=== PATIENT | female | born 1960 | race Hispanic/Latino ===

== ENCOUNTER 2018-09-04 11:43 | Emergency (ER) | payer SELFPAY ==
--- NOTE | 2018-09-04 11:54 | Emergency Department Report ---
Blank Doc - Documentation Documentation: This is a 58-year-old female that presents with headache x13 days. Patient de nies any history of headache. Describes headache as aching and throbbing with level of 10/10. Denies any head injuries or trauma. Stated has some dizziness. Denies blurry vision. Sister stated has some balance issues. Also stated has some left ear pain. This initial assessment diagnostic orders/clinical plan/treatment(s) is/are subject to change based on patient's health status, clinical progression and re- assessment by fellow clinical providers in the ED. Further treatment and workup at subsequent clinical providers discretion. Patient/guardians urged not to elope from ED s their condition may be serious if not clinically assessed and managed. Initial orders include: 1-Will order some labs 2-CT of head due to new onset of headache 3- V/S stable
[2018-09-04 12:38] LABS: Basophils % (Auto) 0.5 % (0.0-1.8); Eosinophils # (Auto) 0.2 K/mm3 (0.0-0.4); Eosinophils % (Auto) 1.6 % (0.0-4.3); Hemoglobin 13.6 gm/dl (10.1-14.3); Lymphocytes # (Auto) 3.7 K/mm3 (1.2-5.4); Lymphocytes % (Auto) 38.9 % (13.4-35.0); Mean Corpuscular HGB Conc 34 % (30-34); Mean Corpuscular Volume 86 fl (79-97); Monocytes # (Auto) 0.5 K/mm3 (0.0-0.8); Platelet Count 220 K/mm3 (140-440); Red Blood Count 4.64 M/mm3 (3.65-5.03); Red Cell Distribution Width 13.8 % (13.2-15.2)
[2018-09-04] MEDS ORDERED: BENADRYL IV ONE (12:39)
[2018-09-04] MEDS ORDERED: ZOFRAN IV ONE (12:39)
--- NOTE | 2018-09-04 12:48 | Cat Scan Report ---
FINAL REPORT EXAM: CT HEAD/BRAIN WO CON HISTORY: headache TECHNIQUE: CT of the head was performed. No intravenous contrast was administered. PRIORS: 02/28/2016 FINDINGS: There is no evidence of intracranial hemorrhage. There is no edema, mass effect or midline shift. There are no abnormal extra-axial fluid collections. The ventricles are appropriate for brain volume. There is no skull fracture seen. The visualized aspects of the sinuses are clear. IMPRESSION: There is no acute intracranial abnormality identified.
[2018-09-04 12:55] LABS: Alanine Aminotransferase 16 units/L (7-56); Albumin 4.2 g/dL (3.9-5); BUN/Creatinine Ratio 19; Blood Urea Nitrogen 15 mg/dL (7-17); Calcium 9.4 mg/dL (8.4-10.2); Hemolysis Index 2
[2018-09-04 13:00] LABS: Bilirubin,Urine NEG (Negative); Blood,Urine NEG (Negative); Color,Urine Yellow (Yellow); Mucus,Urine FEW /HPF; Protein,Urine <15 mg/dL mg/dL (Negative); Urobilinogen,Urine < 2.0 mg/dL (<2.0)
--- NOTE | 2018-09-04 13:48 | Emergency Department Report ---
ED Headache HPI - General Chief Complaint: Headache Stated Complaint: SEVERE HEADACHE Time Seen by Provider: 09/04/18 11:50 - History of Present Illness Initial Comments: 58-year-old female with a history of migraine headaches presents to ED with intermittent migraine headache for the past 2 weeks. She denies loss of consciousness trauma to the head. States [id number] medications has no relief. She reports pain. He rates pain a 5 out of 10 intensity with no blurred vision. She denies fever, chills, nausea vomiting, stuffy nose, coughing, dizziness or shortness of breath Quality: moderate Head Injury Location: frontal, temporal Recent Head Trauma: no recent headache/trauma, frequent headaches, chronic headaches Modifying Factors: worse with: exposure to light Associated Symptoms: other (nausea). denies: confusion, fatigue, facial pain, loss of consciousness, nausea/vomiting, nasal congestion, nasal drainage Allergies/Adverse Reactions: Allergies No Known Allergies Allergy (Verified 11/17/13 04:10) Home Medications: Ambulatory Orders Hydrocodone Bit/Acetaminophen [Lortab 10-500 mg] 1 tab PO Q6H PRN #20 tablet 05/04/13 ALPRAZolam [Xanax TAB] 0.5 mg PO TID PRN 02/28/16 Prochlorperazine [Compazine] 10 mg PO Q8HR #40 tablet 09/04/18 ED Review of Systems ROS: Stated complaint: SEVERE HEADACHE Other details as noted in HPI Comment: All other systems reviewed and negative ED Past Medical Hx - Past Medical History Hx Hypertension: Yes - Surgical History Hx Appendectomy: Yes - Social History Smoking Status: Current Every Day Smoker Substance Use Type: None - Medications Home Medications: Home Medications Medication Instructions Recorded Confirmed Last Taken Type Hydrocodone Bit/Acetaminophen 1 tab PO Q6H PRN #20 tablet 05/04/13 02/28/16 Unknown Rx [Lortab 10-500 mg] ALPRAZolam [Xanax TAB] 0.5 mg PO TID PRN 02/28/16 02/28/16 Unknown History Prochlorperazine [Compazine] 10 mg PO Q8HR #40 tablet 09/04/18 Unknown Rx ED Physical Exam - General Limitations: No Limitations General appearance: alert, in no apparent distress - Head Head exam: Present: atraumatic, normocephalic - Eye Eye exam: Present: normal appearance - ENT ENT exam: Present: mucous membranes moist - Neck Neck exam: Present: normal inspection - Respiratory Respiratory exam: Present: normal lung sounds bilaterally. Absent: respiratory distress - Cardiovascular Cardiovascular Exam: Present: regular rate, normal rhythm. Absent: systolic murmur, diastolic murmur, rubs, gallop - GI/Abdominal GI/Abdominal exam: Present: soft, normal bowel sounds - Extremities Exam Extremities exam: Present: normal inspection - Back Exam Back exam: Present: normal inspection - Neurological Exam Neurological exam: Present: alert, oriented X3, CN II-XII intact, normal gait, other (no neurological deficit.) - Expanded Neurological Exam Expanded Cerebellar function: Finger to Nose: Normal Sensory exam: Upper Extremity Light Touch: Normal, Lower Extremity Light Touch: Normal Motor strength exam: RUE: 5, LUE: 5, RLE: 5, LLE: 5 - Psychiatric Psychiatric exam: Present: normal affect, normal mood - Skin Skin exam: Present: warm, dry, intact, normal color. Absent: rash ED Course Vital Signs 09/04/18 09/04/18 11:52 14:21 Temperature 97.8 F 98.2 F Pulse Rate 92 H 79 Respiratory 18 19 Rate Blood Pressure 142/92 Blood Pressure 125/74 [Right] O2 Sat by Pulse 96 99 Oximetry ED Medical Decision Making - Lab Data Result diagrams: 09/04/18 12:22 09/04/18 12:22 - Radiology Data Radiology results: report reviewed, image reviewed No acute intracranial abnormality - Medical Decision Making 58-year-old female that presents with migraine headache Patient received medication in the ED. She had no neurological deficit during the ED stay. Discuss follow-up with her primary care physician as well as Discuss follow-up with neurologist for assessment of migraine headaches. CT scan shows no acute process. Critical care attestation.: If time is entered above; I have spent that time in minutes in the direct care of this critically ill patient, excluding procedure time. ED Disposition Clinical Impression: Migraine headache with aura Disposition: -01 TO HOME OR SELFCARE Is pt being admited?: No Does the pt Need Aspirin: No Condition: Stable Instructions: Migraine Headache (ED), Acute Headache (ED) Additional Instructions: Make sure to follow up with the primary care physician as discussed. Take all your medications as you've been prescribed. If you have any worsening symptoms or develop new symptoms please return to ED immediately. Prescriptions: Prochlorperazine [Compazine] 10 mg PO Q8HR #40 tablet Referrals: [facility] [Outside] - 3-5 Days [facility] [Outside] - 3-5 Days CHARISMA CALVERT MD [Staff Physician] - 3-5 Days Forms: Accompanied Note, Work/School Release Form(ED) Time of Disposition: 13:48
[2018-09-04 14:23] VITALS: BP 125/74
== END 2018-09-04 14:10 | disposition home or self-care (01) ==
LOC: ED 11:43
DX: G43.109 Migraine with aura, not intractable, without status migrainosus (principal); I10 Essential (primary) hypertension; F17.200 Nicotine dependence, unspecified, uncomplicated; Z90.89 Acquired absence of other organs
CPT/HCPCS: 36415; 70450; 80053; 81001; 85025; 96374; 96375; 99284; J1200; J2405

== ENCOUNTER 2019-09-12 08:08 | Emergency (ER) | payer SELFPAY ==
[2019-09-12 08:20] VITALS: BP 121/67
[2019-09-12] MEDS ORDERED: IBUPROFEN 600 MG TAB PO ONE (08:53)
[2019-09-12] MEDS ORDERED: oxyCODONE /ACETAMINOPHEN 5-325MG TAB PO ONE (08:53)
--- NOTE | 2019-09-12 09:41 | XRay Report ---
LEFT RIB SERIES 4 VIEWS INDICATION: Fall RIB PAIN. COMPARISON: No relevant prior imaging study available. FINDINGS: No pulmonary contusion or hemopneumothorax is seen. No displaced left-sided rib fractures are seen. IMPRESSION: 1. No acute findings. Signer Name: Vijay Lemus MD Signed: 09/12/2019 9:37 AM Workstation Name: [id number]
--- NOTE | 2019-09-12 09:48 | Emergency Department Report ---
ED General Adult HPI - General Chief complaint: Fall Stated complaint: RIB PAIN X 3 DAYS Time Seen by Provider: 09/12/19 08:48 Source: patient, EMS Mode of arrival: Stretcher Limitations: No Limitations - History of Present Illness Initial comments: Patient is a 58-year-old female was walking 2 days ago and tripped on a Toy and fell to the ground. Patient fell on her left side. Patient is complaining of intense pain in the left ribs. There is some bruising just distal to the left axilla. Patient has difficulty moving and taking deep br eaths. Pain is 9 out of 10 in severity. Severity scale (0 -10): 9 Quality: aching Consistency: constant Associated Symptoms: denies: cough, diaphoresis, fever/chills, malaise, nausea/vomiting - Related Data Home Medications Medication Instructions Recorded Confirmed Last Taken ALPRAZolam [Xanax TAB] 0.5 mg PO TID PRN 02/28/16 02/28/16 Unknown Previous Rx's Medication Instructions Recorded Last Taken Type Hydrocodone Bit/Acetaminophen 1 tab PO Q6H PRN #20 tablet 05/04/13 Unknown Rx [Lortab 10-500 mg] Prochlorperazine [Compazine] 10 mg PO Q8HR #40 tablet 09/04/18 Unknown Rx HYDROcodone/APAP 5-325 [Hugo 1 each PO Q6HR PRN #10 tablet 09/12/19 Unknown Rx 5/325] Ibuprofen [Motrin 600 MG tab] 600 mg PO Q8H PRN #14 tablet 09/12/19 Unknown Rx methOCARBAMOL [Robaxin TAB] 500 mg PO Q6H PRN #14 tablet 09/12/19 Unknown Rx Allergies Allergy/AdvReac Type Severity Reaction Status Date / Time No Known Allergies Allergy Verified 11/17/13 04:10 ED Review of Systems ROS: Stated complaint: RIB PAIN X 3 DAYS Other details as noted in HPI Comment: All other systems reviewed and negative ED Past Medical Hx - Past Medical History Previous Medical History?: Yes Hx Hypertension: Yes - Surgical History Hx Appendectomy: Yes - Social History Smoking Status: Current Every Day Smoker Substance Use Type: None - Medications Home Medications: Home Medications Medication Instructions Recorded Confirmed Last Taken Type Hydrocodone Bit/Acetaminophen 1 tab PO Q6H PRN #20 tablet 05/04/13 02/28/16 Unknown Rx [Lortab 10-500 mg] ALPRAZolam [Xanax TAB] 0.5 mg PO TID PRN 02/28/16 02/28/16 Unknown History Prochlorperazine [Compazine] 10 mg PO Q8HR #40 tablet 09/04/18 Unknown Rx HYDROcodone/APAP 5-325 [Hugo 1 each PO Q6HR PRN #10 tablet 09/12/19 Unknown Rx 5/325] Ibuprofen [Motrin 600 MG tab] 600 mg PO Q8H PRN #14 tablet 09/12/19 Unknown Rx methOCARBAMOL [Robaxin TAB] 500 mg PO Q6H PRN #14 tablet 09/12/19 Unknown Rx ED Physical Exam - General Limitations: No Limitations General appearance: alert, in distress - Head Head exam: Present: atraumatic, normocephalic - Eye Eye exam: Present: normal appearance - ENT ENT exam: Present: normal orophraynx, mucous membranes moist - Neck Neck exam: Present: normal inspection - Respiratory Respiratory exam: Present: normal lung sounds bilaterally, chest wall tenderness. Absent: respiratory distress, wheezes, rales, rhonchi - Cardiovascular Cardiovascular Exam: Present: regular rate, normal rhythm. Absent: systolic murmur, diastolic murmur, rubs, gallop - Expanded Cardiovascular Exam Expanded 1 - bruising just below axilla in the lateral chest wall - GI/Abdominal GI/Abdominal exam: Present: soft, normal bowel sounds - Extremities Exam Extremities exam: Present: normal inspection - Back Exam Back exam: Present: normal inspection - Neurological Exam Neurological exam: Present: alert, oriented X3 - Psychiatric Psychiatric exam: Present: normal affect, normal mood - Skin Skin exam: Present: warm, dry, intact, normal color. Absent: rash ED Course Vital Signs 09/12/19 09/12/19 08:17 09:10 Temperature 98.9 F Pulse Rate 90 Respiratory 16 16 Rate Blood Pressure 121/67 [Left] O2 Sat by Pulse 97 Oximetry ED Medical Decision Making - Radiology Data LEFT RIB SERIES 4 VIEWS INDICATION: Fall RIB PAIN. COMPARISON: No relevant prior imaging study available. FINDINGS: No pulmonary contusion or hemopneumothorax is seen. No displaced left-sided rib fractures are seen. IMPRESSION: 1. No acute findings - Medical Decision Making X-ray was performed of the left ribs. There is no pneumothorax seen and no displaced rib fractures. Patient still could have some nondisplaced rib fractures present but they are not seen on x-ray. Patient will be given pain management as well as an incentive spirometer should be discharged home. Critical care attestation.: If time is entered above; I have spent that time in minutes in the direct care of this critically ill patient, excluding procedure time. ED Disposition Clinical Impression: Rib contusion Qualifiers: Encounter type: initial encounter Laterality: left Qualified Code(s): S20.212A - Contusion of left front wall of thorax, initial encounter Disposition: DC-01 TO HOME OR SELFCARE Is pt being admited?: No Does the pt Need Aspirin: No Condition: Stable Instructions: Rib Fracture (ED) Referrals: PRIMARY CARE, [Primary Care Provider] - 3-5 Days Time of Disposition: 09:47
== END 2019-09-12 10:01 | disposition home or self-care (01) ==
LOC: ED 08:08
DX: S20.212A Contusion of left front wall of thorax, initial encounter (principal); I10 Essential (primary) hypertension; F17.200 Nicotine dependence, unspecified, uncomplicated; Z90.49 Acquired absence of other specified parts of digestive tract; Z79.1 Long term (current) use of non-steroidal anti-inflammatories (NSAID); Z79.899 Other long term (current) drug therapy; W01.0XXA Fall on same level from slipping, tripping and stumbling without subsequent striking against object, initial encounter; Y93.89 Activity, other specified; Y92.89 Other specified places as the place of occurrence of the external cause; Y99.8 Other external cause status

== ENCOUNTER 2020-06-19 10:13 | Emergency (ER) | payer OTHER ==
[2020-06-19 10:28] VITALS: BP 143/75
[2020-06-19] MEDS ORDERED: KETOROLAC 30 MG/1 ML INJ IM ONE (11:37)
[2020-06-19] MEDS ORDERED: oxyCODONE /ACETAMINOPHEN 5-325MG TAB PO PRN (11:38)
--- NOTE | 2020-06-19 12:19 | Emergency Department Report ---
ED Extremity Problem HPI - General Chief complaint: Extremity Injury, Lower Stated complaint: KNEE PAIN Time Seen by Provider: 06/19/20 11:17 Source: patient Mode of arrival: Ambulatory Limitations: No Limitations - History of Present Illness Initial comments: 60-year-old female with chronic knee pain x 6 months she was last seen by Dr. Madrigal a few weeks ago and treated with steroid injection and Lortab . The pain is worse with ambulation. She denies any recent falls or trauma. She is out of Lortab and Dr. Madrigal office is closed office is closed patient seeking pain relief. MD Complaint: other (Bilateral knee pain) -: week(s) Location: bilateral lower extremity History of Same: Yes (Chronic knee pain x6 months) Severity scale (0 -10): 10 Quality: aching Consistency: constant Improves with: nothing Worsens with: walking Associated Symptoms: denies other symptoms. denies: chest pain, shortness of breath, fever, myalgias, rash - Related Data Previous Rx's Medication Instructions Recorded Last Taken Type Nystatin [Nystatin SUSP] 100,000 unit PO TID 7 Days 10/02/19 Unknown Rx busPIRone [Buspar] 7.5 mg PO BID #60 tablet 10/02/19 Unknown Rx traZODone [Desyrel] 50 mg PO QHS #10 tablet 10/02/19 Unknown Rx methylPREDNISolone [Medrol 4MG 4 mg PO DAILY #1 pkg 06/19/20 Unknown Rx DOSEPAK (21 tabs)] traMADoL [Ultram 50 MG tab] 50 mg PO Q6HR PRN #15 tablet 06/19/20 Unknown Rx Allergies Allergy/AdvReac Type Severity Reaction Status Date / Time No Known Allergies Allergy Verified 11/17/13 04:10 ED Review of Systems ROS: Stated complaint: KNEE PAIN Other details as noted in HPI Comment: All other systems reviewed and negative Constitutional: denies: no symptoms reported ED Past Medical Hx - Past Medical History Hx Hypertension: Yes - Surgical History Hx Appendectomy: Yes - Social History Smoking Status: Current Every Day Smoker - Medications Home Medications: Home Medications Medication Instructions Recorded Confirmed Last Taken Type Nystatin [Nystatin SUSP] 100,000 unit PO TID 7 Days 10/02/19 Unknown Rx busPIRone [Buspar] 7.5 mg PO BID #60 tablet 03/12/20 Unknown Rx traZODone [Desyrel] 50 mg PO QHS #10 tablet 10/02/19 Unknown Rx methylPREDNISolone [Medrol 4MG 4 mg PO DAILY #1 pkg 06/19/20 Unknown Rx DOSEPAK (21 tabs)] traMADoL [Ultram 50 MG tab] 50 mg PO Q6HR PRN #15 tablet 06/19/20 Unknown Rx ED Physical Exam - General Limitations: No Limitations General appearance: alert, in no apparent distress - Head Head exam: Present: atraumatic - Eye Eye exam: Present: normal appearance - ENT ENT exam: Present: normal exam - Respiratory Respiratory exam: Present: normal lung sounds bilaterally - Cardiovascular Cardiovascular Exam: Present: regular rate, normal heart sounds - GI/Abdominal GI/Abdominal exam: Present: soft - Extremities Exam Extremities exam: Present: normal inspection, full ROM, normal capillary refill, other (No swelling noted of her knees bilaterally skins intact no erythema) - Neurological Exam Neurological exam: Present: alert, oriented X3 - Psychiatric Psychiatric exam: Present: normal affect - Skin Skin exam: Present: warm, dry ED Course Vital Signs 06/19/20 10:24 Temperature 97.4 F L Pulse Rate 76 Respiratory 20 Rate Blood Pressure 143/75 O2 Sat by Pulse 95 Oximetry ED Medical Decision Making - Medical Decision Making 60-year-old with chronic knee pain she was treated with Toradol IM she is out of pain medicine plan is to follow-up with Dr. Madrigal's office on Sunday and or orthopedic Critical Care Time: No Critical care attestation.: If time is entered above; I have spent that time in minutes in the direct care of this critically ill patient, excluding procedure time. ED Disposition Clinical Impression: Chronic knee pain Qualifiers: Laterality: bilateral Qualified Code(s): M25.561 - Pain in right knee Disposition: DC-01 TO HOME OR SELFCARE Is pt being admited?: No Does the pt Need Aspirin: No Condition: Stable Instructions: Acute Knee Pain, Adult Additional Instructions: Follow-up with your primary care doctor and or Dr. Marquez orthopedic doctor in 3 to 5 days. Take medication for pain as as directed. Apply warm compress to your knees bilaterally Prescriptions: methylPREDNISolone [Medrol 4MG DOSEPAK (21 tabs)] 4 mg PO DAILY #1 pkg traMADoL [Ultram 50 MG tab] 50 mg PO Q6HR PRN #15 tablet PRN Reason: Pain Referrals: ELISA MADRIGAL MD [Staff Physician] - 3-5 Days EMERALD MARQUEZ MD [Staff Physician] - 3-5 Days Time of Disposition: 12:45
== END 2020-06-19 13:00 | disposition home or self-care (01) ==
LOC: ED 10:13
DX: M25.561 Pain in right knee (principal); M25.562 Pain in left knee; G89.29 Other chronic pain; I10 Essential (primary) hypertension; F17.200 Nicotine dependence, unspecified, uncomplicated; Z90.49 Acquired absence of other specified parts of digestive tract; Z79.899 Other long term (current) drug therapy
CPT/HCPCS: 96372; 99282; J1885

== ENCOUNTER 2021-02-09 17:55 | Emergency (ER) | payer OTHER | END 2021-02-09 18:00 | disposition left against medical advice (07) | LOC: ED 17:55 | DX: Z53.21 Procedure and treatment not carried out due to patient leaving prior to being seen by health care provider (principal) ==

== ENCOUNTER 2021-03-02 19:28 | Emergency (ER) | payer OTHER ==
--- NOTE | 2021-03-02 21:01 | XRay Report ---
RIGHT ANKLE 3 VIEWS INDICATION: pain and swelling FOLLOWES BY A FALL TODAY. COMPARISON: No relevant prior imaging study available. FINDINGS: There is a minimally displaced transverse fracture near the base of the medial malleolus. There also appears to be a minimally displaced fracture through the posterior malleolus laterally. No distal fib ular fracture is seen. There is mild diffuse soft tissue swelling. IMPRESSION: 1. Minimally displaced medial and posterior malleolus fractures. Signer Name: Vijay Lemus MD Signed: 03/02/2021 8:57 PM Workstation Name: [id number]
[2021-03-02] MEDS ORDERED: oxyCODONE /ACETAMINOPHEN 5-325MG TAB PO ONE (22:31)
--- NOTE | 2021-03-02 22:46 | Emergency Department Report ---
ED Lower Extremity HPI - General Chief Complaint: Extremity Injury, Lower Stated Complaint: ANKLE INJURY Time Seen by Provider: 03/02/21 22:37 Source: patient Mode of arrival: Wheelchair Limitations: Physical Limitation - History of Present Illness Initial Comments: 58-year-old female with home earlier today while she was walking from the bed to the kitchen when she missed a step causing her right ankle to roll and her fall down to the ground resulting in pain swelling and inability to ambulate due to the discomfort she presents emergency department seeking evaluation of the injury. She reports no numbness, no tingling pain is dull and throbbing worse with palpation and range of motion she has noticed a decreased range of motion primarily second to pain secondary to pain MD Complaint: ankle injury, foot injury -: Sudden Injury: Ankle: Right, Foot: Right Type of Injury: inversion Place: home Severity: moderate Improves With: immobilization Context: fall Associated Symptoms: swelling, unable to bear weight - Related Data Previous Rx's Medication Instructions Recorded Last Taken Type Nystatin [Nystatin SUSP] 100,000 unit PO TID 7 Days 10/02/19 Unknown Rx busPIRone [Buspar] 7.5 mg PO BID #60 tablet 10/02/19 Unknown Rx traZODone [Desyrel] 50 mg PO QHS #10 tablet 10/02/19 Unknown Rx methylPREDNISolone [Medrol 4MG 4 mg PO DAILY #1 pkg 06/19/20 Unknown Rx DOSEPAK (21 tabs)] traMADoL [Ultram 50 MG tab] 50 mg PO Q6HR PRN #15 tablet 06/19/20 Unknown Rx Acetaminophen/Codeine [Tylenol 1 tab PO Q6H PRN #14 tab 03/02/21 Unknown Rx /Codeine # 3 tab] Allergies Allergy/AdvReac Type Severity Reaction Status Date / Time No Known Allergies Allergy Verified 11/17/13 04:10 ED Review of Systems ROS: Stated complaint: ANKLE INJURY Other details as noted in HPI Comment: All other systems reviewed and negative ED Past Medical Hx - Past Medical History Previous Medical History?: Yes Hx Hypertension: Yes - Surgical History Past Surgical History?: Yes Hx Appendectomy: Yes - Social History Smoking Status: Current Every Day Smoker Substance Use Type: None - Medications Home Medications: Home Medications Medication Instructions Recorded Confirmed Last Taken Type Nystatin [Nystatin SUSP] 100,000 unit PO TID 7 Days 10/02/19 Unknown Rx busPIRone [Buspar] 7.5 mg PO BID #60 tablet 10/02/19 Unknown Rx traZODone [Desyrel] 50 mg PO QHS #10 tablet 10/02/19 Unknown Rx methylPREDNISolone [Medrol 4MG 4 mg PO DAILY #1 pkg 06/19/20 Unknown Rx DOSEPAK (21 tabs)] traMADoL [Ultram 50 MG tab] 50 mg PO Q6HR PRN #15 tablet 06/19/20 Unknown Rx Acetaminophen/Codeine [Tylenol 1 tab PO Q6H PRN #14 tab 03/02/21 Unknown Rx /Codeine # 3 tab] ED Physical Exam - General Limitations: Physical Limitation General appearance: alert, in no apparent distress - Head Head exam: Present: atraumatic, normocephalic - Eye Eye exam: Present: normal appearance - ENT ENT exam: Present: mucous membranes moist - Neck Neck exam: Present: normal inspection - Respiratory Respiratory exam: Present: normal lung sounds bilaterally. Absent: respiratory distress - Cardiovascular Cardiovascular Exam: Present: regular rate, normal rhythm. Absent: systolic m urmur, diastolic murmur, rubs, gallop - GI/Abdominal GI/Abdominal exam: Present: soft, normal bowel sounds - Extremities Exam Extremities exam: Present: normal inspection, tenderness, joint swelling - Expanded Lower Extremity Exam Right Ankle exam: Present: tenderness, swelling, ecchymosis. Absent: abrasion, laceration, crepidus Foot/Toe exam: Present: tenderness, swelling Neuro vascular tendon exam: Present: no vascular compromise. Absent: pulse deficit, abnormal cap refill, motor deficit 1 - Swelling tenderness and ecchymosis noted to this region. - Back Exam Back exam: Present: normal inspection - Neurological Exam Neurological exam: Present: alert, oriented X3 - Psychiatric Psychiatric exam: Present: normal affect, normal mood - Skin Skin exam: Present: warm, dry, intact, normal color. Absent: rash ED Course Vital Signs 03/02/21 22:41 Respiratory 20 Rate - Orthopedic Splinting/Casting Injury #1 Side: right Lower Extremity Injury Location: ankle, foot Lower Extremity Immobilizer: posterior splint, stirrup splint Other Orthopedic Equipment: crutches ED Lower Extremity MDM - Radiology Data Radiology results: report reviewed [facility] [address] [place] [address] XRay Report Signed Patient: NOEL MONTEMAYOR MR#: [id number] : 1960 Acct:[id number] Age/Sex: 60 / F ADM Date: 03/02/21 Loc: ED Attending Dr: Ordering Physician: LAEX LANE MD Date of Service: 03/02/21 Procedure(s): XR ankle 3+V RT Accession Number(s): [id number] cc: ED MD ARIANA Fluoro Time In Minutes: RIGHT ANKLE 3 VIEWS INDICATION: pain and swelling FOLLOWES BY A FALL TODAY. COMPARISON: No relevant prior imaging study available. FINDINGS: There is a minimally displaced transverse fracture near the base of the medial malleolus. There also appears to be a minimally displaced fracture through the posterior malleolus laterally. No distal fibular fracture is seen. There is mild diffuse soft tissue swelling. IMPRESSION: 1. Minimally displaced medial and posterior malleolus fractures. Signer Name: Vijay Lemus MD Signed: 03/02/2021 8:57 PM Workstation Name: [id number] Transcribed By: Dictated By: Vijay Lemus MD Electronically Authenticated By: Vijay Lemus MD Signed Date/Time: 03/02/212056 DD/ 54 TD/TT: Critical care attestation.: If time is entered above; I have spent that time in minutes in the direct care of this critically ill patient, excluding procedure time. ED Disposition Clinical Impression: Fracture of posterior malleolus of right tibia, Fracture of ankle, medial malleolus, right, closed Disposition: DC-01 TO HOME OR SELFCARE Is pt being admited?: No Does the pt Need Aspirin: No Condition: Stable Instructions: Nondisplaced Fibular Ankle Fracture Treated With Immobilization, Adult, How to Use Cold Therapy, [id number], Displaced Bimalleolar Ankle Fracture Treated With ORIF, Care After, Cast or Splint Care, Adult Prescriptions: Acetaminophen/Codeine [Tylenol /Codeine # 3 tab] 1 tab PO Q6H PRN #14 tab PRN Reason: Pain , Severe (7-10) Referrals: EMERALD MARQUEZ MD [Staff Physician] - 3-5 Days
[2021-03-02] MEDS ORDERED: LORazepam 1 MG TAB PO ONE (23:10)
== END 2021-03-02 23:40 | disposition home or self-care (01) ==
LOC: ED 19:28
DX: S82.51XA Displaced fracture of medial malleolus of right tibia, initial encounter for closed fracture (principal); S82.891A Other fracture of right lower leg, initial encounter for closed fracture; F17.200 Nicotine dependence, unspecified, uncomplicated; I10 Essential (primary) hypertension; W19.XXXA Unspecified fall, initial encounter; Y93.89 Activity, other specified; Y92.89 Other specified places as the place of occurrence of the external cause; Y99.8 Other external cause status
CPT/HCPCS: 99283; 99284

== ENCOUNTER 2021-05-19 13:09 | Outpatient (CLI) | payer OTHER ==
--- NOTE | 2021-05-19 15:52 | XRay Report ---
XR knee BILAT 1-2V INDICATION / CLINICAL INFORMATION: DAVID KNEE PAIN. COMPARISON: None available. FINDINGS: Remote right proximal fibular fracture. Normal alignment. . Mild osteoarthritic changes of bilateral knees with joint space loss most canal set the medial compartment. No destructive osseous lesion or suspicious periosteal reaction. Impression: 1. Mild osteoarthritis. 2. Remote right proximal fibular fracture. Signer Name: Kaden Bishop MD Signed: 05/19/2021 3:46 PM Workstation Name: [employer]
== END 2021-05-19 13:10 | disposition home or self-care (01) ==
LOC: XRAY 13:09
PROVIDERS: ATTEND Orthopaedic Surgery
DX: S82.491A Other fracture of shaft of right fibula, initial encounter for closed fracture (principal); M17.0 Bilateral primary osteoarthritis of knee; X58.XXXA Exposure to other specified factors, initial encounter; Y93.89 Activity, other specified; Y92.89 Other specified places as the place of occurrence of the external cause; Y99.8 Other external cause status

== ENCOUNTER 2021-05-26 10:23 | Outpatient (CLI) | payer OTHER ==
--- NOTE | 2021-05-26 12:35 | XRay Report ---
Right ankle 3 views INDICATION: Ankle pain FINDINGS: There is a fractures of the medial malleolus. This fracture may extend to the posterior mal leolus as well. Diffuse swelling within the medial and lateral ankle. Calcaneus appears intact. Talar dome appears intact. IMPRESSION: Fractures of the medial and posterior malleolus of the distal tibia with diffuse soft tissue swelling throughout the ankle. Signer Name: Jeff Caldera MD Signed: 05/26/2021 12:30 PM Workstation Name: [id number]
== END 2021-05-26 10:24 | disposition home or self-care (01) ==
LOC: XRAY 10:23
PROVIDERS: ATTEND Orthopaedic Surgery
DX: S82.51XA Displaced fracture of medial malleolus of right tibia, initial encounter for closed fracture (principal); M79.89 Other specified soft tissue disorders; X58.XXXA Exposure to other specified factors, initial encounter; Y93.89 Activity, other specified; Y92.89 Other specified places as the place of occurrence of the external cause; Y99.8 Other external cause status

== ENCOUNTER 2021-11-30 13:50 | Outpatient (CLI) | payer OTHER ==
--- NOTE | 2021-11-30 14:58 | XRay Report ---
Bilateral knees INDICATION: Pain FINDINGS: Tricompartmental degenerative osteoarthrosis. Significant joint space narrowing is seen thr oughout most significant medial compartment and patellofemoral joints. Prominent osteophytes along th e medial compartment in the right knee. Signer Name: Jeff Caldera MD Signed: 11/30/2021 2:53 PM Workstation Name: [id number]
--- NOTE | 2021-11-30 15:24 | XRay Report ---
XR ankle 3+V RT INDICATION / CLINICAL INFORMATION: DISPLACED FX OF MEDIAL MALLEOLUS OF RT TIBIA. COMPARISON: Right ankle x-ray 05/26/2021 AP, LATERAL, AND [place]BLI[place] VIEWS RIGHT ANKLE FINDINGS: The fracture of the medial malleolus and posterior malleolus are reidentified. Moderate displacement of the posterior malleolar fragment measuring 8 mm is present. The medial malleolar fracture demonstr ates little change fracture line remains evident. Moderate bimalleolar soft tissue swelling remains p resent. IMPRESSION: 1. Increased displacement posterior malleolar fracture. Minimal change of medial malleolar fracture. Signer Name: Reid Villagomez II, MD Signed: 11/30/2021 3:20 PM Workstation Name: [id number]
== END 2021-11-30 13:51 | disposition home or self-care (01) ==
LOC: XRAY 13:50
PROVIDERS: ATTEND Orthopaedic Surgery
DX: S82.51XA Displaced fracture of medial malleolus of right tibia, initial encounter for closed fracture (principal); M79.89 Other specified soft tissue disorders; M17.0 Bilateral primary osteoarthritis of knee; M25.761 Osteophyte, right knee; X58.XXXA Exposure to other specified factors, initial encounter; Y93.89 Activity, other specified; Y92.89 Other specified places as the place of occurrence of the external cause; Y99.8 Other external cause status
CPT/HCPCS: 73565